=== PATIENT | female | born 1960 | race African-American/Black ===

== ENCOUNTER 2017-06-03 12:24 | Emergency (ER) | payer OTHER ==
--- NOTE | 2017-06-03 13:39 | ER Document Report ---
HPI - HPI Patient complains to provider of: right breast pain Pain Level: 5 Context: Patient is a 57 year old female who presents to the ED complaining of right nipple pain that started yesterday with associated nontender breast lump. She states she does breast exams once a month and felt this area is new. Unsure of her last mammogram. Previous breast nodule that underwent biopsy for benign process 10 years ago. PCP is Dr. Vilchis who she had an appointment with today but came to the ED first because of the pain. She did not take anything OTC and is driving herself home. No other PMH Past Medical History - Social History Smoking Status: Current Every Day Smoker Chew tobacco use (# tins/day): No Frequency of alcohol use: Occasional Drug Abuse: None Family History: Reviewed & Not Pertinent Patient has suicidal ideation: No Patient has homicidal ideation: No Renal/ Medical History: Denies: Hx Peritoneal Dialysis - Immunizations Immunizations up to date: Yes Hx Diphtheria, Pertussis, Tetanus Vaccination: No Vertical Provider Document - CONSTITUTIONAL Agree With Documented VS: Yes Notes: PHYSICAL EXAM GENERAL: Alert, interacts well. LUNGS: Clear to auscultation bilaterally, no wheezes, rales, or rhonchi. No respiratory distress. HEART: Regular rate and rhythm. No murmurs, gallops, or rubs. BREAST: inflammed and tender nipple without active drainage. Palpable breast lump at 9/10 o'clock position without tenderness, induration, or erythema NEUROLOGICAL: Alert and oriented x4. Normal speech. PSYCH: Normal affect, normal mood. SKIN: Warm, dry, normal turgor. No rashes or lesions noted. - INFECTION CONTROL TRAVEL OUTSIDE OF THE [place] IN LAST 30 DAYS: No - RESPIRATORY O2 Sat by Pulse Oximetry: 100 Course - Re-evaluation Re-evalutation: 06/03/17 14:05 Patient is a 57 year old female who is hemodynamically stable, no acute distress and afebrile. Low clinical suspicion for mastitis given no evidence of induration, erythema, breast tenderness and patient is afebrile. Given painless breast nodule and nipple irritation, recommending follow up today with OBGYN who is able to see her with Dr Vilchis at [facility] once she is discharged from the ED with recommendation for outpatient mammogram. - Vital Signs Vital signs: Temp Pulse Resp BP Pulse Ox 98.4 F 87 14 165/76 H 100 06/03/17 12:29 06/03/17 12:29 06/03/17 12:29 06/03/17 12:29 06/03/17 12:29 Discharge - Discharge Clinical Impression: Breast pain Condition: Good Disposition: HOME, SELF-CARE Additional Instructions: Please follow-up with your COURTROOM CLERK immediately upon discharge. You will require an outpatient mammogram to evaluate your problem further. Forms: Return to Work Referrals: BENJAMIN VILCHIS MD [HONORARY] - 06/03/17 1:45 pm
[2017-06-03 13:58] VITALS: BP 160/75
== END 2017-06-03 13:57 | disposition home or self-care (01) ==
LOC: ER 12:24
DX: N64.4 Mastodynia (principal); N63.10 Unspecified lump in the right breast, unspecified quadrant; F17.200 Nicotine dependence, unspecified, uncomplicated
CPT/HCPCS: 99282

== ENCOUNTER 2020-01-30 09:06 | Emergency (ER) | payer BC, OTHER ==
[2020-01-30 10:22] LABS: ABSOLUTE BASOPHILS # (AUTO) 0.1 10^3/uL (0.0-0.2); ABSOLUTE EOSINOPHILS # (AUTO) 0.1 10^3/uL (0.0-0.6); ABSOLUTE LYMPHOCYTES (AUTO) 1.8 10^3/uL (0.5-4.7); ABSOLUTE MONOCYTES (AUTO) 0.3 10^3/uL (0.1-1.4); ABSOLUTE NEUT (AUTO) 3.2 10^3/uL (1.7-8.2); BASOPHILS % (AUTO) 1.2 % (0-2); EOSINOPHILS % (AUTO) 2.1 % (0-6); HEMATOCRIT 43.5 % (36.0-47.0); HEMOGLOBIN 14.8 g/dL (12.0-15.5); LYMPHOCYTES % (AUTO) 33.1 % (13-45); MEAN CORPUSCULAR HEMOGLOBIN 31.3 pg (27.0-33.4); MEAN CORPUSCULAR HGB CONC 34.1 g/dL (32.0-36.0); MEAN CORPUSCULAR VOLUME 92 fl (80-97); MONOCYTES % (AUTO) 4.7 % (3-13); PLATELET COUNT 299 10^3/uL (150-450); RED BLOOD COUNT 4.74 10^6/uL (3.72-5.28); RED CELL DISTRIBUTION WIDTH 13.9 % (11.5-14.0); SEGMENTED NEUTROPHILS % (AUTO) 58.9 % (42-78); TOTAL CELLS COUNTED % (AUTO) 100 %; WHITE BLOOD COUNT 5.4 10^3/uL (4.0-10.5)
[2020-01-30 10:30] LABS: APPEARANCE,URINE CLEAR; BILIRUBIN,URINE NEGATIVE (NEGATIVE); COLOR,URINE YELLOW; GLUCOSE, URINE NEGATIVE (NEGATIVE); KETONES,URINE NEGATIVE (NEGATIVE); LEUKOCYTE ESTERASE,URINE NEGATIVE (NEGATIVE); NITRITE,URINE NEGATIVE (NEGATIVE); PROTEIN,URINE NEGATIVE (NEGATIVE); URINE SPECIFIC GRAVITY 1.011; UROBILINOGEN,URINE NEGATIVE mg/dL (<2.0)
[2020-01-30 10:45] LABS: ALBUMIN 4.5 g/dL (3.5-5.0); ALKALINE PHOSPHATASE 69 U/L (38-126); ANION GAP 7 (5-19); ASPARTATE AMINO TRANSFERASE 20 U/L (14-36); BILIRUBIN,TOTAL 0.5 mg/dL (0.2-1.3); BLOOD UREA NITROGEN 12 mg/dL (7-20); CALCIUM 9.9 mg/dL (8.4-10.2); CARBON DIOXIDE 27 mmol/L (22-30); CHLORIDE 104 mmol/L (98-107); GLUCOSE 97 mg/dL (75-110); POTASSIUM 4.8 mmol/L (3.6-5.0); TOTAL PROTEIN 7.8 g/dL (6.3-8.2)
[2020-01-30] MEDS ORDERED: KETOROLAC TROMETHAMINE INJ/PF 30 MG/1 ML SDV IV ONE (10:53)
[2020-01-30] MEDS ORDERED: NORMAL SALINE 1000 ML 1,000 ML IV ONE (10:53)
[2020-01-30] MEDS ORDERED: ONDANSETRON HCL INJ/PF 4 MG/2 ML SDV IV ONE (10:53)
--- NOTE | 2020-01-30 10:58 | ER Document Report ---
ED General - General Chief Complaint: Flank Pain Stated Complaint: LEFT FLANK PAIN Time Seen by Provider: 01/30/20 10:31 TRAVEL OUTSIDE OF THE [place] IN LAST 30 DAYS: No - HPI Notes: Chief complaint: Left flank pain History of present illness: 59-year-old female with no known prior history of renal stones presents with 3-day history of worsening intermittent of the left flank pain now radiating to left lower quadrant of abdomen. Mild nausea without vomiting. No fever chills. No gross hematuria. No dysuria. Normal bowel movements. Patient says she thought this was due to "gas" and is taken several doses of an [id number]-[id number] medication called Gas-X. No improvement with this. Patient is presently described as 8/10 intensity and is now steady in the left flank area. No prior surgery. Patient is a 2 para 2 and is postmenopausal. - Related Data Allergies/Adverse Reactions: No Known Allergies Allergy (Verified 01/30/20 10:32) Past Medical History - General Information source: Patient, Relative, [facility] Records - Social History Smoking Status: Current Every Day Smoker Frequency of alcohol use: None Drug Abuse: None Family History: Reviewed & Not Pertinent Patient has homicidal ideation: No - Medical History Medical History: Negative Renal/ Medical History: Denies: Hx Peritoneal Dialysis Surgical Hx: Negative - Immunizations Immunizations up to date: Yes Hx Diphtheria, Pertussis, Tetanus Vaccination: No Review of Systems - Review of Systems Notes: Constitutional: Negative for fever. HENT: Negative for sore throat. Eyes: Negative for visual changes. Cardiovascular: Negative for chest pain. Respiratory: Negative for shortness of breath. Gastrointestinal: As per HPI. Genitourinary: As per HPI. Musculoskeletal: As per HPI. Skin: Negative for rash. Neurological: Negative for headaches, weakness or numbness. 10 point ROS negative except as marked above and in HPI. Physical Exam - Vital signs Vitals: Temp Pulse Resp BP Pulse Ox 98.0 F 75 16 135/72 H 99 01/30/20 09:10 01/30/20 09:10 01/30/20 09:10 01/30/20 09:10 01/30/20 09:10 - Notes Notes: GENERAL: Female patient approximately stated age appearing in moderate discomfort holding left flank area and she seems somewhat restless. SKIN: Good turgor no rashes. HEAD: Normocephalic atraumatic. EYES: PERRLA. EOMI. Conjunctivae and sclerae clear. EARS: CANALS AND TMS CLEAR. NOSE: CLEAR. MOUTH: Moist mucosa. Good dentition. No stridor or edema. No drooling. NECK: Supple. No masses or thyromegaly. No adenopathy. Carotids 2+ without bruits. No JVD. BACK: Symmetrical without tenderness. CHEST: Respirations unlabored. Breath sounds clear and symmetrical. HEART: Regular rhythm. No murmur gallop or rub. ABDOMEN: Soft nontender without masses, organomegaly or rebound. Bowel sounds normally active. No bruits. GENITALIA: Deferred. EXTREMITIES: No edema. No calf tenderness. Cap refill less than 1.5 seconds. Dorsalis pedis and posterior tibial pulses 3+ and symmetrical. NEUROLOGICAL: GCS 15. Alert and oriented x3. Normal gait. Fluent speech. Cranial nerves II through XII intact. Sensorimotor and cerebellar normal. Nor mal tone. PSYCHIATRIC: Appropriate affect. Course - Re-evaluation Re-evalutation: 01/30/20 10:57 Patient has microscopic hematuria. Based on this and her clinical presentation I would be very suspicious that she has ureterolithiasis. I have requested a noncontrast CT abdomen/pelvis. I am currently giving her normal saline IV along with IV Toradol and IV Zofran. 01/30/20 12:[address] of abdomen pelvis reported as normal per radiologist. Following administration of IV Toradol and Zofran she feels much better although her pain has not totally resolved. Abdomen is soft and nontender at this time. White count was normal and she has no fever. Comprehensive metabolic profile is unremarkable. Given the fact she has blood in her urine and her clinical presentation I think it is likely that she has passed a small stone and has some residual spasm of the ureter. 01/30/20 12:28 I think the patient is stable for outpatient follow-up with her primary care physician. I will going to culture her urine. I will give her oral analgesics and oral antibiotic and ask her to push p.o. fluids and follow-up with primary care physician within the next 24 to 48 hours. She should of course return here for any new or worsening symptoms. Findings, clinical impression and plan of treatment have been discussed with patient/family. Understanding of current findings and recommendations has been acknowledged by them and there is agreement regarding disposition and follow-up. - Vital Signs Vital signs: Temp Pulse Resp BP Pulse Ox 98.0 F 75 16 135/72 H 99 01/30/20 09:20 01/30/20 09:10 01/30/20 09:10 01/30/20 09:10 01/30/20 09:10 - Laboratory Result Diagrams: 01/30/20 09:40 01/30/20 09:40 Laboratory results interpreted by me: 01/30/20 09:40 Urine Blood LARGE H Discharge - Discharge Clinical Impression: Left flank pain Hematuria Qualifiers: Hematuria type: other microscopic Qualified Code(s): R31.29 - Other microscopic hematuria; R31.2 - Other microscopic hematuria Condition: Stable Disposition: HOME, SELF-CARE Additional Instructions: Increase oral fluids. Take prescribed medications as instructed. Follow-up with referral physician within the next 48 hours. A work note for the next 3 days has been provided for you. Return here as needed for new or worsening symptoms: Pain that is worsening or unimproved Uncontrolled vomiting High fever or shaking chills Overall worsening Prescriptions: Tramadol HCl [Ultram 50 mg Tablet] 50 mg PO Q4HP PRN #12 tab PRN Reason: Cephalexin Monohydrate [Keflex 500 mg Capsule] 500 mg PO Q6H 10 Days #40 capsule Forms: Return to Work Referrals: [facility] [Provider Group] - Follow up as needed
--- NOTE | 2020-01-30 11:43 | RADIOLOGY REPORT (SQ) ---
EXAM DESCRIPTION: CT ABD/PELVIS NO ORAL OR IV IMAGES COMPLETED DATE/TIME: 01/30/2020 11:27 am REASON FOR STUDY: hematuria and left flank pain COMPARISON: None. TECHNIQUE: CT scan of the abdomen and pelvis performed without intravenous or oral contrast. Images reviewed with lung, soft tissue, and bone windows. Reconstructed coronal and sagittal MPR images revi ewed. All images stored on PACS. All CT scanners at this facility use dose modulation, iterative reconstruction, and/or weight based d osing when appropriate to reduce radiation dose to as low as reasonably achievable (ALARA). [facility]: Dose Right [facility]: CareDose [facility]: Dose Right [facility]: Teradose 4D [facility]: [employer] RADIATION DOSE: CT Rad equipment meets quality standard of care and radiation dose reduction techniq ues were employed. CTDIvol: 7.7 mGy. DLP: 441 mGy-cm.mGy. LIMITATIONS: None. FINDINGS: LOWER CHEST: Bibasilar atelectasis. NON-CONTRASTED LIVER, SPLEEN, ADRENALS: Evaluation limited by lack of IV contrast. No identified sign ificant masses. PANCREAS: No masses. No peripancreatic inflammatory changes. GALLBLADDER: No identified stones by CT criteria. No inflammatory changes to suggest cholecystitis. RIGHT KIDNEY AND URETER: Small right renal cysts. No suspicious findings. No significant calcifica tions. No hydronephrosis or hydroureter. LEFT KIDNEY AND URETER: No suspicious masses. Assessment limited by lack of IV contrast. Small nono bstructing stone in the lower pole the left kidney best demonstrated on coronal reconstructions. Mi ld prominent extrarenal pelvis on the left. No hydronephrosis. AORTA AND RETROPERITONEUM: No aneurysm. No retroperitoneal masses or adenopathy. BOWEL AND PERITONEAL CAVITY: No obvious masses or inflammatory changes. No free fluid. APPENDIX: Normal. PELVIS, BLADDER, AND ABDOMINAL WALL:No abnormal masses. No free fluid. Bladder normal. BONES: No significant findings. OTHER: No other significant finding. IMPRESSION: NO SIGNIFICANT OR ACUTE PROCESS IN THE ABDOMEN OR PELVIS. COMMENT: Quality ID # [id number]: Final reports with documentation of one or more dose reduction techniques (e.g., Automated exposure control, adjustment of the mA and/or kV according to patient size, use of iterative reconstruction technique) TECHNICAL DOCUMENTATION: JOB ID: [id number] [employer]- All Rights Reserved Reading location - IP/workstation name: [email or web address]
[2020-01-30] MEDS ORDERED: OXYCODONE-ACETAMINOPHEN 5-325 MG TABLET PO ONE (12:23)
[2020-01-30 14:12] VITALS: BP 129/69
== END 2020-01-30 14:12 | disposition home or self-care (01) ==
LOC: ER 09:06
DX: R10.9 Unspecified abdominal pain (principal); R31.29 Other microscopic hematuria; F17.200 Nicotine dependence, unspecified, uncomplicated
CPT/HCPCS: 99285; 96361; 96374; 96375; 36415; 83690; 85025; 80053; 81001; 74176; J1885; J2405; J7030